=== PATIENT | female | born 1955 | race Caucasian/White ===

== ENCOUNTER 2017-01-26 08:40 | Outpatient (CLI) | payer OTHER ==
[2017-01-26 09:23] LABS: % BASOPHILS 0.3 % (0.0-2.0); % EOSINOPHILS 0.8 % (0.0-5.0); % LYMPHOCYTES 36.9 % (20.0-50.0); % MONOCYTES 4.1 % (2.0-10.0); % NEUTROPHILS 57.9 % (40.0-80.0); HEMATOCRIT 43.9 % (41.0-60); HEMOGLOBIN 14.2 gm/dL (12-16); MEAN CELL VOLUME 93.8 fl (81-100); MEAN CORPUSCULAR HEMOGLOBIN 30.4 pg (27.0-31.0); MEAN CORPUSCULAR HGB CONC 32.4 pg (28.0-36.0); NEUTROPHILE ABSOLUTE 3.2 Th/cmm (1.8-8.0); PLATELET COUNT 305 Th/cmm (150-400); RED BLOOD COUNT 4.68 Mil/cmm (3.80-5.10); RED CELL DISTRIBUTION WIDTH 12.2 % (11.5-20.0); WHITE BLOOD COUNT 5.4 Th/cmm (4.8-10.8)
[2017-01-26 09:41] LABS: ALB/GLOB RATIO 1.6 (1.0-1.8); ALKALINE PHOSPHATASE 45 U/L (34-104); ANION GAP 9.3 (7.0-16.0); BILIRUBIN,TOTAL 0.4 mg/dL (0.3-1.0); BUN - UREA NITROGEN 19 mg/dL (7-25); CALCIUM SERUM 9.3 mg/dL (8.6-10.3); CARBON DIOXIDE 25.3 mEq/L (21.0-31.0); CHLORIDE 109 mEq/L (98-107); CHOLESTEROL 143 mg/dL (<200); GLUCOSE 99 mg/dL (70-105); POTASSIUM SERUM 3.6 mEq/L (3.5-5.1); SGOT 14 U/L (13-39); SGPT/ALT 13 U/L (7-52); SODIUM SERUM 140 mEq/L (136-145); TRIGLYCERIDES 101 mg/dL (<150)
== END 2017-01-26 09:00 | disposition home or self-care (01) ==
LOC: LAB 08:40
DX: E55.9 Vitamin D deficiency, unspecified (principal); R79.89 Other specified abnormal findings of blood chemistry
CPT/HCPCS: 36415-UA; 80053-TC; 80061-TC; 82306-90; 84443-TC; 85025-TC

== ENCOUNTER 2017-08-07 08:31 | Emergency (ER) | payer OTHER ==
--- NOTE | 2017-08-07 08:44 | ED Physician Chart ---
ED Chief Complaint/HPI - Patient Information Date Seen:: 08/07/17 Time Seen:: 08:43 Chief Complaint:: Low back pain History of Present Illness:: 62 yo female had low back pain 9 years ago and became nearly asymptomatic until this morning when she experienced sharp pain at right lumbar sacral area. She had trouble getting out of car and walking due to pain. Allergies:: Allergies Allergy/AdvReac Type Severity Reaction Status Date / Time No Known Allergies Allergy Verified 08/07/17 08:43 ED Review of Systems - Review of Systems General/Constitutional: No fever Skin: No skin lesions Head: No headache Eyes: No pain ENT: No earache Neck: No neck pain Cardio Vascular: No chest pain Pulmonary: No SOB GI: No nausea, No vomiting Musculoskeletal: Back pain Psychiatric: No prior psych history Neurological: No focal symptoms ED Past Medical History - Past Medical History Past Medical History: HTN, Dyslipidemia (hyperlipidemia), PUD/GERD, Other ( Hiatal Hernia, Sleep Apnea) Social History: Non Smoker, Alcohol, No Drug Use Surgical History: None Family Medical History - Family Member Mother History Unknown: Yes ED Physical Exam - Physical Examination General/Constitutional: Awake, Alert Head: Atraumatic Eyes: PERRL Skin: No skin lesions ENMT: Nasal exam nl Neck: No nuchal rigidity Respiratory: Clear to Auscultation, No Wheeze/Rhonchi/Rales Cardio Vascular: RRR, No murmur, gallop, rubs, NL S1 S2 GI: No tenderness/rebounding/guarding Extremities: Full ROM Other Extremities comments:: Right SI joint tenderness with painful ROM. Negative straight leg raise test and Gregory test Neuro/Psych: No focal deficits ED Labs/Radiology/EKG Results - Radiology Results Results: Lumbar X ray: generalized degenerative changes in lumbar spine and SI joints ED Assessment - Assessment General Assessment: Low back pain likely due to right SI joint pain Assessment/Comments:: Lumbar spine X ray Toradol 30mg IM x 1 D/c home F/u PCP or return to ER if symptoms worsen ED Septic Shock - . Is Septic Shock (SBP<90, OR Lactate>4 mmol\L) present?: No ED Reassessment (Disposition) - Reassessment Reassessment Condition:: Improved - Patient Disposition Discharge/Transfer:: Home ED Discharge Plan - Patient Disposition Admit/Discharge/Transfer: PT DISCHARGED HOME Condition at Disposition: Stable Instructions: Low Back Sprain with Rehab-SportsMed
--- NOTE | 2017-08-07 09:42 | Diagnostic Imaging Report ---
Lumbar spine 3 views Indication: Low back pain Comparison: none Findings: The exam is limited due to body habitus. There appears to be clothing material overlying the patient. No evidence of an acute compression fracture or subluxation. Moderate generalized degenerative changes are seen with mild disc space loss of height at L1/L2 with marginal osteophytic spurring. Moderate facet degenerative changes also noted. Degenerative changes of SI joints are noted. Impression: Moderate generalized degenerative changes. No evidence of acute compression fracture or subluxation. In the setting of trauma, if clinical symptoms persist and there is continued concern for an occult fracture, follow up exams in 5-7 days is suggested.
== END 2017-08-07 10:48 | disposition home or self-care (01) ==
LOC: ER 08:31 → EEVIPCON 08:31 → ER 10:48
DX: M54.5 Low back pain (principal); I10 Essential (primary) hypertension; E78.5 Hyperlipidemia, unspecified; K21.9 Gastro-esophageal reflux disease without esophagitis; Z87.11 Personal history of peptic ulcer disease
CPT/HCPCS: 99284; 96372; 72100; J1885; Z7502

== ENCOUNTER 2017-11-17 07:55 | Outpatient (CLI) | payer OTHER ==
[2017-11-17 08:37] LABS: % BASOPHILS 0.5 % (0.0-2.0); % LYMPHOCYTES 34.5 % (20.0-50.0); % MONOCYTES 3.9 % (2.0-10.0); % NEUTROPHILS 60.1 % (40.0-80.0); EOSINOPHILE ABSOLUTE 0.1 Th/cmm (0.1-0.4); HEMATOCRIT 43.5 % (41.0-60); HEMOGLOBIN 14.2 gm/dL (12-16); MEAN CELL VOLUME 91.7 fl (81-100); MEAN CORPUSCULAR HGB CONC 32.7 pg (28.0-36.0); MEAN PLATELET VOLUME 7.6 fl; MONOCYTE ABSOLUTE 0.2 Th/cmm (0.3-1.0); NEUTROPHILE ABSOLUTE 3.6 Th/cmm (1.8-8.0); PLATELET COUNT 386 Th/cmm (150-400); RED BLOOD COUNT 4.74 Mil/cmm (3.80-5.10); WHITE BLOOD COUNT 5.9 Th/cmm (4.8-10.8)
[2017-11-17 08:56] LABS: ALB/GLOB RATIO 1.4 (1.0-1.8); ALBUMIN 4.2 gm/dL (3.7-5.3); ALKALINE PHOSPHATASE 66 U/L (34-104); BILIRUBIN,TOTAL 0.5 mg/dL (0.3-1.0); BUN - UREA NITROGEN 17 mg/dL (7-25); CALCIUM SERUM 9.5 mg/dL (8.6-10.3); CHLORIDE 104 mEq/L (98-107); CHOLESTEROL 140 mg/dL (<200); CREATININE - SERUM 0.9 mg/dL (0.6-1.2); GFR AFRICAN-AMERICAN > 60.0 ml/min (>90); GFR NON AFRICAN-AMERICAN > 60.0 ml/min; GLUCOSE 117 mg/dL (70-105); HDL -HIGH DENSITY LIPOPROTEIN 51 mg/dL (23-92); SGOT 19 U/L (13-39); SGPT/ALT 20 U/L (7-52); SODIUM SERUM 141 mEq/L (136-145); TOTAL PROTEIN,SERUM 7.3 gm/dL (6.0-8.3); TRIGLYCERIDES 119 mg/dL (<150)
[2017-11-17 19:33] LABS: A1C % 5.8 % (4.0-6.0)
== END 2017-11-17 08:11 | disposition home or self-care (01) ==
LOC: LAB 07:55
DX: Z00.01 Encounter for general adult medical examination with abnormal findings (principal)
CPT/HCPCS: 36415-UA; 80053-TC; 80061-TC; 82306-90; 83036-90; 85025-TC

== ENCOUNTER 2018-02-10 09:10 | Outpatient (CLI) | payer OTHER | END 2018-02-10 09:45 | disposition home or self-care (01) | LOC: LAB 09:10 | DX: R73.9 Hyperglycemia, unspecified (principal) | CPT/HCPCS: 83036-90 ==

== ENCOUNTER 2018-06-14 09:44 | Outpatient (CLI) | payer OTHER ==
[2018-06-14 12:44] LABS: ANION GAP 13.9 (7.0-16.0); BUN - UREA NITROGEN 18 mg/dL (7-25); CALCIUM SERUM 8.8 mg/dL (8.6-10.3); CARBON DIOXIDE 26.2 mEq/L (21.0-31.0); CHLORIDE 107 mEq/L (98-107); CREATININE - SERUM 0.9 mg/dL (0.6-1.2); GFR AFRICAN-AMERICAN > 60.0 ml/min (>90); GFR NON AFRICAN-AMERICAN > 60.0 ml/min; GLUCOSE 107 mg/dL (70-105); POTASSIUM SERUM 4.1 mEq/L (3.5-5.1); SODIUM SERUM 143 mEq/L (136-145)
== END 2018-06-14 10:05 | disposition home or self-care (01) ==
LOC: LAB 09:44
DX: R73.03 Prediabetes (principal)
CPT/HCPCS: 36415-UA; 80048-TC; 83036-90

== ENCOUNTER 2018-09-22 08:03 | Outpatient (CLI) | payer OTHER ==
[2018-09-22 08:41] LABS: HEMOGLOBIN 14.6 gm/dL (12-16); MONOCYTE ABSOLUTE 0.3 Th/cmm (0.3-1.0)
[2018-09-22 09:22] LABS: ALB/GLOB RATIO 1.5 (1.0-1.8); ALBUMIN 4.3 gm/dL (3.7-5.3); ALKALINE PHOSPHATASE 50 U/L (34-104); ANION GAP 12.4 (7.0-16.0); BILIRUBIN,TOTAL 0.7 mg/dL (0.3-1.0); BUN - UREA NITROGEN 16 mg/dL (7-25); CALCIUM SERUM 9.5 mg/dL (8.6-10.3); CARBON DIOXIDE 27.6 mEq/L (21.0-31.0); CHLORIDE 104 mEq/L (98-107); GFR AFRICAN-AMERICAN > 60.0 ml/min (>90); GFR NON AFRICAN-AMERICAN 59.9 ml/min; GLUCOSE 117 mg/dL (70-105); SGOT 21 U/L (13-39); SGPT/ALT 25 U/L (7-52); SODIUM SERUM 140 mEq/L (136-145); TOTAL PROTEIN,SERUM 7.2 gm/dL (6.0-8.3)
[2018-09-22 09:52] LABS: LYMPHOCYTE ABSOLUTE 2.3 Th/cmm (1.5-3.0); NEUTROPHILE ABSOLUTE 2.9 Th/cmm (1.8-8.0)
[2018-09-22 09:55] LABS: % BASOPHILS 0.3 % (0.0-2.0); % EOSINOPHILS 0.5 % (0.0-5.0); % LYMPHOCYTES 41.3 % (20.0-50.0); % MONOCYTES 4.6 % (2.0-10.0); % NEUTROPHILS 53.3 % (40.0-80.0); MEAN CELL VOLUME 89.7 fl (81-100); MEAN CORPUSCULAR HEMOGLOBIN 29.7 pg (27.0-31.0); MEAN CORPUSCULAR HGB CONC 33.1 pg (28.0-36.0); PLATELET COUNT 331 Th/cmm (150-400); RED CELL DISTRIBUTION WIDTH 12.7 % (11.5-20.0); WHITE BLOOD COUNT 5.5 Th/cmm (4.8-10.8)
[2018-09-22 14:00] LABS: ESR SEDIMENTATION SED RATE 8 mm/hr (0-30)
== END 2018-09-22 08:26 | disposition home or self-care (01) ==
LOC: LAB 08:03
DX: G40.509 Epileptic seizures related to external causes, not intractable, without status epilepticus (principal); R20.2 Paresthesia of skin; G24.5 Blepharospasm; G62.9 Polyneuropathy, unspecified; G25.0 Essential tremor; R51 Headache
CPT/HCPCS: 36415-UA; 80053-TC; 82607-90; 82746-90; 83036-90; 84207-90; 84443-TC; 85025-TC; 85652-TC; 86038-90; 86141-TC

== ENCOUNTER 2018-09-27 08:03 | Emergency (ER) | payer OTHER ==
--- NOTE | 2018-09-27 08:16 | ED Physician Chart ---
ED Chief Complaint/HPI - Patient Information Date Seen:: 09/27/18 Time Seen:: 08:10 Chief Complaint:: Redness in right upper eyelid for one day. History of Present Illness:: Pt has noticed redness and mild swelling in right upper eyelid for one day. No N /V. No eye pain per se. No fever. Allergies:: Allergies Allergy/AdvReac Type Severity Reaction Status Date / Time No Known Allergies Allergy Verified 09/27/18 08:09 Vitals:: see Nurse Note. Historian:: Patient Family MD/PCP:: Dr. Robert LMP:: Postmenopausal. Review:: Nurse's Note Reviewed ED Review of Systems - Review of Systems General/Constitutional: No fever, No weight loss, No weakness Skin: No bruising Head: No headache, No light-headedness Eyes: No loss of vision, No pain, No diplopia ENT: No earache, No nasal drainage, No sore throat Neck: No neck pain, No stiffness Cardio Vascular: No chest pain, No edema Pulmonary: No SOB, No cough, No wheezing GI: No nausea, No vomiting, No pain G/U: No dysuria, No frequency, No hematuria Valve Lapper: No vaginal discharge, No abnormal vaginal bleed Musculoskeletal: No bone or joint pain Psychiatric: No prior psych history Hematopoietic: No bruising, No lymphadenopathy Allergic/Immuno: No urticaria, No angioedema Neurological: No headache, No confusion, No vertigo ED Past Medical History - Past Medical History Past Medical History: HTN, Other (migraine) Family History: Cancer (breast CA in mother.) Social History: Non Smoker, Alcohol (occasional), No Drug Use, , Employed Employment:: hospital staff Surgical History: other (R foot surgery about 10 y/a.) Psychiatricy History: None Family Medical History - Family Member Mother History Unknown: Yes ED Physical Exam - Physical Examination General/Constitutional: Awake, Well-developed, well-nourished, Alert, No distress, Non-toxic appearing, Ambulatory Other Gen/Cons comments:: Breathes comfortably, speaks clearly, and interacts appropriately. Head: Atraumatic Eyes: PERRL, EOMI Other Eyes comments:: R upper eyelid has erythema with edema. No open wound or exudate. No red streakings. Skin: No rash, Well hydrated, No lymphadenopathy ENMT: External ears, nose nl, Nasal exam nl, Oropharynx nl Neck: Nontender, Full ROM w/o pain, No nuchal rigidity, No mass Respiratory: Nl effort/Exclusion, Clear to Auscultation, No Wheeze/Rhonchi/Rales Cardio Vascular: RRR, No murmur, gallop, rubs Neuro/Psych: Alert/oriented (oriented x 3), Judgement/insight normal, Mood normal, Normal gait, No focal deficits ED Septic Shock - . Is Septic Shock (SBP<90, OR Lactate>4 mmol\L) present?: No ED Reassessment (Disposition) - Reassessment Reassessment:: 0850 Pt remains stable and overall feels better. Pt requests to leave now. Aftercare instructions have been given. Reassessment Condition:: Improved - Diagnosis Diagnosis:: Right blepharitis. Stable. - Aftercare/Follow up Instructions Aftercare/Follow-Up Instructions:: Refer to Discharge Instructions Notes:: Warm compress is to be applied to affected area in right upper eyelid for 15 minutes every 2 hours. Eye hygiene instructions given. Follow-up with PCP Dr. Robert in one day for recheck. Return to ER immediately if condition worsens or if any further questions/problems. Medication Prescribed:: Erythromycin ophthalmic ointment, applied topically to affected area in right eye q8h D-one tube R-0 Bactrim DS one tab po q12h for 10 days. D-20 R-0 - Patient Disposition Discharge/Transfer:: Home Time:: 08:55 Condition at Disposition:: Stable, Improved
[2018-09-27] MEDS ORDERED: Sulfamethoxazole/TMP 800/160mg Tab PO ONE (08:25)
[2018-09-27] MEDS ORDERED: Sulfamethoxazole/TMP 800/160mg Tab ONE (08:29)
== END 2018-09-27 08:50 | disposition home or self-care (01) ==
LOC: ER 08:03
DX: H01.001 Unspecified blepharitis right upper eyelid (principal); I10 Essential (primary) hypertension
CPT/HCPCS: Z7502